=== PATIENT | male | born 1980 | race Caucasian/White ===

== ENCOUNTER 2017-02-26 09:23 | Emergency (ER) | payer OTHER ==
[2017-02-26 09:31] VITALS: RESP 22
[2017-02-26] MEDS ORDERED: LET GEL TOPICAL 1 EA SYR TP ONE ×2 (09:36→09:37)
[2017-02-26] MEDS ORDERED: IBUPROFEN 200 MG TAB PO ONE (09:46)
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
[2017-02-26 11:24] VITALS: BP 113/67; PULSE 82; TEMP 97.9; O2SAT 97
== END 2017-02-26 11:24 | disposition home or self-care (01) ==
DX: S52.021A Displaced fracture of olecranon process without intraarticular extension of right ulna, initial encounter for closed fracture (principal); S06.0X0A Concussion without loss of consciousness, initial encounter; S80.811A Abrasion, right lower leg, initial encounter; S40.211A Abrasion of right shoulder, initial encounter; V18.0XXA Pedal cycle driver injured in noncollision transport accident in nontraffic accident, initial encounter

== ENCOUNTER → 2017-02-28 | Outpatient (CLI) | payer OTHER | LOC: FIMAGING 14:12 | PROVIDERS: ATTEND Family Medicine | DX: H53.2 Diplopia (principal); F07.81 Postconcussional syndrome ==

== ENCOUNTER → 2017-04-16 | Outpatient (CLI) | payer OTHER | LOC: BMCIMAGING 08:17 | PROVIDERS: ATTEND Orthopaedic Surgery | DX: S52.021D Displaced fracture of olecranon process without intraarticular extension of right ulna, subsequent encounter for closed fracture with routine healing (principal) ==

== ENCOUNTER → 2017-05-15 | Outpatient (CLI) | payer OTHER | LOC: BMCIMAGING 08:32 | PROVIDERS: ATTEND Orthopaedic Surgery | DX: S52.001D Unspecified fracture of upper end of right ulna, subsequent encounter for closed fracture with routine healing (principal) ==

== ENCOUNTER → 2017-07-17 | Outpatient (CLI) | payer OTHER | LOC: BMCIMAGING 08:00 | PROVIDERS: ATTEND Orthopaedic Surgery | DX: S42.401A Unspecified fracture of lower end of right humerus, initial encounter for closed fracture (principal); X58.XXXA Exposure to other specified factors, initial encounter ==

== ENCOUNTER → 2017-09-12 | Outpatient (CLI) | payer OTHER | LOC: BMCIMAGING 07:56 | PROVIDERS: ATTEND Physician Assistant | DX: S42.401D Unspecified fracture of lower end of right humerus, subsequent encounter for fracture with routine healing (principal); X58.XXXD Exposure to other specified factors, subsequent encounter ==